=== PATIENT | female | born 1950 | race Caucasian/White ===

== ENCOUNTER 2022-07-20 09:25 | Day surgery (SDC) | payer MEDICARE, BC ==
[~2022-07-20] VITALS: Ht 170.2 cm; Wt 68.1 kg
[~2022-07-20 09:25] MED LIST: ATEN25; LEVSOD125; METF500C
[2022-07-20] MEDS ORDERED: ASPI81CH ×2 (10:06→10:07)
== END 2022-07-20 12:23 | disposition home or self-care (01) ==
LOC: ORSCSDS 09:25
PROVIDERS: Student in an Organized Health Care Education/Training Program
PROC: 0DBN8ZX Excision of Sigmoid Colon, Via Natural or Artificial Opening Endoscopic, Diagnostic (ICD-10-PCS; principal; 2022-07-20 11:00)
PROC: 0DBH8ZX Excision of Cecum, Via Natural or Artificial Opening Endoscopic, Diagnostic (ICD-10-PCS; principal; 2022-07-20 11:00)
PROC: 0DBL8ZX Excision of Transverse Colon, Via Natural or Artificial Opening Endoscopic, Diagnostic (ICD-10-PCS; principal; 2022-07-20 11:00)
DX: Z12.11 Encounter for screening for malignant neoplasm of colon (principal); D12.3 Benign neoplasm of transverse colon; D12.5 Benign neoplasm of sigmoid colon; Z86.010 Personal history of colon polyps; E11.9 Type 2 diabetes mellitus without complications; I10 Essential (primary) hypertension; E78.5 Hyperlipidemia, unspecified; E03.9 Hypothyroidism, unspecified; Z79.84 Long term (current) use of oral hypoglycemic drugs; Z79.899 Other long term (current) drug therapy
CPT/HCPCS: 82947; 88305; J2704; J7120